=== PATIENT | female | born 1990 ===

== ENCOUNTER 2019-03-12 17:33 | Emergency (ER) | payer OTHER ==
[~2019-03-12] VITALS: Ht 152.4 cm; Wt 92.1 kg
[~2019-03-12 17:33] MED LIST: OXYC1TAB9 PO; PREVACID30 MG PO; PROTONIX40 MG PO
[2019-03-12] MEDS ORDERED: AUMENTIN (18:29)
== END 2019-03-12 21:29 | disposition home or self-care (01) ==
LOC: ER 17:33
DX: J35.01 Chronic tonsillitis (principal); H10.89 Other conjunctivitis

== ENCOUNTER 2019-08-20 23:07 | Emergency (ER) | payer OTHER ==
[~2019-08-20] VITALS: Ht 152.4 cm; Wt 93.9 kg
[~2019-08-20 23:07] MED LIST changes: +AUMENTIN
== END 2019-08-21 10:38 | disposition home or self-care (01) ==
LOC: ER 23:07 → EMR PED 23:09 → ER 08-21 10:38
DX: K52.89 Other specified noninfective gastroenteritis and colitis (principal)

== ENCOUNTER 2019-10-17 14:15 | Emergency (ER) | payer OTHER ==
[~2019-10-17] VITALS: Ht 152.4 cm; Wt 94.3 kg
== END 2019-10-17 19:53 | disposition home or self-care (01) ==
LOC: ER 14:15
DX: J06.9 Acute upper respiratory infection, unspecified (principal)